=== PATIENT | male | born 1955 | race Caucasian/White ===

== ENCOUNTER → 2019-01-05 | Outpatient (CLI) | payer OTHER ==
--- NOTE | 2019-01-05 13:58 | REP ---
Clinical: Kidney stone. Technique: Single supine view of the abdomen and pelvis. Comparison: None. Findings: 7 mm right intrarenal calculus suggested. Nonspecific bowel gas pattern. Skeletal structures are intact and normal for age. Impression: 7 mm right renal calculus. Electronically Signed by Michael Trores MD 01/05/2019 01:49 P
== END ==
LOC: M SMT 13:27
PROVIDERS: ATTEND Nurse Practitioner Family
DX: N20.0 Calculus of kidney (principal)

== ENCOUNTER 2019-01-22 06:19 | Day surgery (SDC) | payer OTHER ==
[~2019-01-22] VITALS: Ht 175.3 cm; Wt 96.6 kg
[~2019-01-22 06:19] MED LIST: DOXY100T16 PO; FLOM0.4C39 PO; LISI-542 PO; LR 1,000 ML IV ONE; VITAD1000T PO
[2019-01-22] MEDS ORDERED: PROPOFOL 500 MG/50 ML VIAL As Ordered ONE (07:39)
[2019-01-22] MEDS ORDERED: LIDOCAINE 2% INJ 100 MG/5 ML SDV (FOR ANES.) As Ordered ONE (07:40)
[2019-01-22] MEDS ORDERED: GLYCOPYRROLATE INJ 0.2 MG/ML 2 ML VIAL As Ordered ONE (08:43)
[2019-01-22] MEDS ORDERED: ONDANSETRON 4MG/2ML VIAL (J2405) IV PRN ×2 (09:30→11:45)
[2019-01-22] MEDS ORDERED: LR 1,000 ML IV SCH ×2 (09:30→11:45)
[2019-01-22] MEDS ORDERED: PERCOCET 5MG/325MG TAB PO PRN ×2 (09:30→11:45)
[2019-01-22] MEDS: PERCOCET 5MG/325MG TAB PO PRN ×2 (09:45→10:18)
--- NOTE | 2019-01-22 10:08 | REP ---
REASON FOR EXAM: History of renal calculi. COMPARISON EXAM: 01/05/2019. There is a calcification seen superimposed over the right 11th rib status quo. It may be within the right kidney. This is unchanged from the prior exam. This calcification measures approximately 7 mm. The organ silhouettes insofar as delineated are without unremarkable. The intestinal gas pattern is nonspecific. IMPRESSION: Calcifications seen on the right as described above. It may be within the right kidney. Consider stone protocol noncontrast enhanced CT if clinically relevant. Electronically Signed by Dean Mills DO 01/22/2019 03:44 P
[2019-01-22] MEDS ORDERED: ONDANSETRON 4MG/2ML VIAL (J2405) As Ordered ONE (10:38)
[2019-01-22] MEDS ORDERED: HYDROMORPHONE HCL 0.5 MG/ 0.5 ML SYRINGE (J1170 PER 1) As Ordered ONE ×3 (11:38→12:18)
[2019-01-22] MEDS: HYDROMORPHONE HCL 0.5 MG/ 0.5 ML SYRINGE (J1170 PER 1) IV PRN ×4 (11:43→12:20)
[2019-01-22 14:00] VITALS: BP 167/90
--- NOTE | 2019-01-26 11:21 | RO ---
DATE OF PROCEDURE: 01/22/2019 PREPROCEDURE DIAGNOSIS: Right kidney stones. POSTPROCEDURE DIAGNOSIS: Right kidney stones. PROCEDURE: Right extracorporeal shock wave lithotripsy. SURGEON: Pal Lakhani MD DRY PASTE SUPERVISOR: None ANESTHESIA: Monitored anesthesia care (MAC). OPERATIVE INDICATIONS: This is a 63-year-old male who was found to have two 7 mm right kidney stones on recent CAT scan. He was brought to the operating room today for the above-listed procedure. DESCRIPTION OF PROCEDURE: The patient was brought to the operating room and MAC was administered. Prophylactic antibiotics were infused. He was then placed in supine position in preparation for a right-sided extracorporeal shock wave lithotripsy. Fluoroscopy and ultrasonography were utilized to monitor stone position and fragmentation throughout the procedure. Shock waves were then delivered to right-sided kidney stones, ungated. There were no arrhythmias. Both stones appeared to have fragment well. After 2500 shocks, the procedure was concluded. The patient was then awakened from anesthesia and transported to the recovery room in stable condition. ESTIMATED BLOOD LOSS: 0 mL. COMPLICATIONS: None. SPECIMENS: None. PLAN: The patient will followup in clinic in a few weeks with imaging prior to assess for residual stone burden. [facility]I
== END 2019-01-22 14:04 | disposition home or self-care (01) ==
LOC: M SDC 06:19
PROVIDERS: ATTEND Urology
DX: N20.0 Calculus of kidney (principal); I10 Essential (primary) hypertension; Z79.899 Other long term (current) drug therapy
CPT/HCPCS: 50590; 74018; J0690; J1170; J2405

== ENCOUNTER → 2019-02-12 | Outpatient (CLI) | payer OTHER ==
[~2019-02-12] MED LIST changes: +CHOL100029 PO; -LR 1,000 ML IV ONE; -VITAD1000T PO
--- NOTE | 2019-02-12 09:23 | REP ---
Clinical: Kidney stone. Technique: Two supine views of the abdomen and pelvis. Comparison: 01/22/2019. Findings: Previously identified right renal calculi are not definitively visualized on current examination although the possibility of very small residual 1-2 mm right renal calculus cannot be excluded. No obvious left renal or bilateral ureteral calculi are noted. Bowel gas pattern is nonspecific. No organomegaly. Skeletal structures are intact. Impression: Previously noted right renal calculi are not definitively identified on current examination. Electronically Signed by Michael Torres MD 02/12/2019 09:15 A
[2019-02-20 10:48] LABS: COMMENT Comment: (.)
== END ==
LOC: M SMT 09:02
PROVIDERS: ATTEND Nurse Practitioner Family
DX: N20.0 Calculus of kidney (principal)

== ENCOUNTER → 2020-05-10 | Outpatient (REF) | payer OTHER ==
[~2020-05-10] MED LIST changes: -DOXY100T16 PO; +DOXY100T27 PO
== END ==
LOC: M SMT 13:17
PROVIDERS: ATTEND Nurse Practitioner Family
DX: N39.0 Urinary tract infection, site not specified (principal)